=== PATIENT | female | born 1965 | race Caucasian/White ===

== ENCOUNTER 2017-02-26 12:21 | Inpatient (IN) | payer MEDICAID ==
[~2017-02-26 12:21] MED LIST: HYDROCODON-ACE1 EA16 PO; NAPROSYN500 M1 PO; NORCO 5-325 TA1 EACH PO; PRILOSEC OTC20 M1 PO; SILVADENE20 G1 TP; VITAMIN D50000 UNI2 PO
[2017-02-26 13:35] LABS: PROTHROMBIN TIME 12.1 SECONDS (9.0-13.6)
[2017-02-27 06:11] LABS: BASO % 0.1 % (0-2); EOS % 2.9 % (0-7); EOSINOPHIL ABSOLUTE COUNT 0.2 tho/cmm (0.0-0.7); HCT-HEMATOCRIT 37.7 % (34.0-49.0); HGB-HEMOGLOBIN 11.8 gm/dl (12.0-15.5); IMMATURE GRANULOCYTES ABSOLUTE 0.02 tho/cmm (0-0.03); IMMATURE GRANULOCYTES PERCENT 0.3 % (0-0.3); LYMPH % 18.5 % (20-45); LYMPH ABSOLUTE COUNT 1.4 tho/cmm (0.8-4.5); MCH (MEAN CORPUSCULAR HGB) 29.9 pg (28.0-32.0); MCHC MEAN CORPUSCULAR HGB CONC 31.3 % (32.0-36.0); MCV (MEAN CELL VOLUME) 95.7 fl (82.0-96.0); MEAN PLATELET VOLUME 11.4 cmc (9.4-12.4); MONO % 8.5 % (0-12); MONOCYTE ABSOLUTE COUNT 0.6 tho/cmm (0.0-1.2); NEUTROPHIL ABSOLUTE COUNT 5.3 tho/cmm (1.6-8.0); NEUTROPHIL-AUTOMATED 5.3 tho/cmm (1.6-8.0); NEUTROPHILS % 69.7 % (40-80); PLATELET COUNT 221 tho/cmm (150-450); RED BLOOD COUNT 3.94 mil/cmm (4.00-5.20); RED CELL DISTRIBUTION WIDTH 14.1 % (12.4-16.4); WHITE BLOOD COUNT 7.6 tho/cmm (4.0-10.0)
[2017-02-27 06:29] LABS: ALB/GLOB RATIO 0.9 (0.8-2.0); ALKALINE PHOSPHATASE 73 U/L (33-138); ALT/SGPT 28 U/L (12-78); ANION GAP 10 mmol/L (0-20); AST/SGOT 20 U/L (10-40); BILIRUBIN,TOTAL 0.5 mg/dl (0-1.5); BLOOD UREA NITROGEN 15 mg/dl (6-24); CALCIUM 8.3 mg/dl (8.5-10.5); CARBON DIOXIDE-VENOUS 31 mmol/L (22-32); CHLORIDE 109 mmol/l (96-110); GLUCOSE 101 mg/dL (70-110); POTASSIUM 3.8 mmol/L (3.7-5.1); SODIUM 146 mmol/L (135-145); eGFR VALUE FOR BLACK >90 mL/Min
[2017-02-28] MEDS ORDERED: PERCOCET 5-3251 EACH PO (08:52)
[2017-02-28] MEDS ORDERED: ASPIRIN325 M3 PO (08:53)
[2017-02-28] MEDS ORDERED: MOBIC7.5 M2 PO (08:54)
[2017-02-28] MEDS ORDERED: ULTRAM50 M1 PO (08:54)
[2017-02-28] MEDS ORDERED: PROMETHAZINE12.5 M2 PO (08:55)
[2017-02-28] MEDS ORDERED: AMBIEN10 M1 PO (08:59)
== END 2017-02-28 12:15 | DRG 470 ==
LOC: SHSB 12:21 → ORE 15:33 → PACU 17:48 → 5EA 19:10
PROVIDERS: Internal Medicine; ADMIT Orthopaedic Surgery
PROC: 0SRD0J9 Replacement of Left Knee Joint with Synthetic Substitute, Cemented, Open Approach (ICD-10-PCS; principal; 2017-02-27)
DX: M17.12 Unilateral primary osteoarthritis, left knee (principal); D62 Acute posthemorrhagic anemia; I10 Essential (primary) hypertension; F41.9 Anxiety disorder, unspecified; F32.9 Major depressive disorder, single episode, unspecified; K21.9 Gastro-esophageal reflux disease without esophagitis; E66.8 Other obesity; Z68.35 Body mass index [BMI] 35.0-35.9, adult
CPT/HCPCS: C1713; C1776; J0171; J0690; J1885; J2270; J2405; J2795